=== PATIENT | male | born 1980 | race Caucasian/White ===

== ENCOUNTER 2017-07-11 14:01 | Inpatient (IN) | payer OTHER ==
[~2017-07-11] VITALS: Ht 182.9 cm; Wt 99.8 kg
[~2017-07-11 14:01] MED LIST: AMOXICILLIN500 MG ORAL; HYDROCODON-ACE1 EA15 ORAL; HYDROCODONE-ACE15 M1 PO; NKM; NORCO 10/3251 EA ORAL; ROBITUSSIN COU118 M4 PO; [UNRECOGNIZED DRUG - OTHER] PO
[2017-07-11] MEDS ORDERED: Ketorolac 60mg Inj IM ONE (14:45)
[2017-07-11 15:18] VITALS: BP 151/95
[2017-07-11] MEDS ORDERED: HYDROmorphone 2mg tab ORAL ONE ×2 (15:30→19:30)
[2017-07-11 16:04] LABS: BASOPHILS % (AUTO) 1.4 % (0.0-2.0); EOSINOPHILS % (AUTO) 1.9 % (0.0-3.0); LYMPHOCYTES % (AUTO) 28.3 % (20.0-45.0); MEAN CORPUSCULAR HEMOGLOBIN 27.8 PG (27.0-31.0); MEAN CORPUSCULAR HGB CONC 31.1 G/DL (32.0-36.0); MEAN CORPUSCULAR VOLUME 89 FL (80-99); MONOCYTES % (AUTO) 9.9 % (1.0-10.0); NEUTROPHILS % (AUTO) 58.6 % (45.0-75.0); PLATELET COUNT 334 K/UL (150-450); RED CELL DISTRIBUTION WIDTH 13.1 % (11.6-14.8); WHITE BLOOD COUNT 11.5 K/UL (4.8-10.8)
[2017-07-11] MEDS ORDERED: LORazepam Inj 2mg/ml 1ml IV ONE (16:15)
[2017-07-11 16:23] LABS: ALANINE AMINOTRANSFERASE 76 U/L (12-78); ALBUMIN/GLOBULIN RATIO 0.9 (1.0-2.7); ANION GAP 16 mmol/L (5-15); ASPARTATE AMINO TRANSFERASE 49 U/L (15-37); CALCIUM 9.4 MG/DL (8.5-10.1); CARBON DIOXIDE 22 MMOL/L (21-32); CHLORIDE 103 MMOL/L (98-107); GLOMERULAR FILTRATION RATE > 60 mL/min (>60); POTASSIUM 3.9 MMOL/L (3.5-5.1); SODIUM 141 MMOL/L (136-145); TOTAL PROTEIN 8.3 G/DL (6.4-8.2)
--- NOTE | 2017-07-11 16:31 | Emergency Room Report ---
History of Present Illness General Chief Complaint: Pain Source: Patient, Medical Record Present Illness HPI 37 YO Male Patient presents to the emergency department complaining of 10/10 in severity acute onset back pain since this am. Movement and walking exacerbates his pain. denies trauma or fall, fevers, chills, history of cancer, or recent spinal procedures. Hx. of spinal surgery for cauda equina of the right side in 2013, pt. states cause was unknown and not due to trauma. Denies numbness tingling or loss of sensation or gross motor movements of the lower extremity, denies incontinence of bowel or bladder. Denies CP, Palpitations, LOC, AMS, dizziness, Changes in Vision, Sensation, paresthesias, or a sudden severe headache. Allergies: Coded Allergies: No Known Allergies (Unverified , 03/20/13) Patient History Past Medical History: see triage record, other - surgery for cauda equina in 2012 Past Surgical History: none Pertinent Family History: none Reviewed Nursing Documentation: PMH: Agreed, PSxH: Agreed Nursing Documentation-PMH Past Medical History: No History, Except For Hx Cardiac Problems: No Hx Asthma: Yes Hx Cancer: No Hx Gastrointestinal Problems: Yes Hx Neurological Problems: Yes - spinal surgery 2012 Hx Cerebrovascular Accident: No Hx Dementia: No Hx Alzheimer's Disease: No Hx Parkinson's Disease: No Hx Meningitis: No Hx Encephalitis: No Hx Seizures: No Hx Epilepsy: No Hx Multiple Sclerosis: No Hx Cerebral Palsy: No Hx Amyotrophic Lat Sclerosis: No Hx Guillian-Friendship Syndrome: No Hx Paralysis: No Hx Peripheral Neuropathy: No Hx Spinal Cord Injury: No Hx Head Trauma: Yes - fall, Hx Traumatic Brain Injury: No Hx Memory Loss: No Hx Concentration Difficulty: No Hx Speech Problem: No Hx Tremors: No Hx Vertigo: No Hx Syncope: No Hx Headaches: No Hx Aphasia: No Hx Dysphasia: No Hx Weakness: No Hx Fatigue: No Review of Systems All Other Systems: negative except mentioned in HPI Physical Exam Vital Signs Date Time Temp Pulse Resp B/P (MAP) Pulse Ox O2 Delivery O2 Flow Rate FiO2 07/11/17 14:08 97.7 99 18 151/95 97 Room Air Sp02 EP Interpretation: reviewed, normal General Appearance: no apparent distress, alert, GCS 15, non-toxic Head: normocephalic, atraumatic Eyes: bilateral eye normal inspection, bilateral eye PERRL ENT: hearing grossly normal, normal voice Neck: full range of motion, no bony tend Respiratory: lungs clear, normal breath sounds, speaking full sentences Cardiovascular #1: regular rate, rhythm, no edema, normal capillary refill Cardiovascular #2: 2+ dorsalis pedis (R), 2+ dorsalis pedis (L) Gastrointestinal: non tender, soft, no guarding, no rebound Rectal: deferred Genitourinary: normal inspection, no CVA tenderness Musculoskeletal: back normal, other - pt. has compensating gait, tender - Moderate Tenderness to palpation to left paraspinal muscles of the left lower back, moderate TTP to the upper left glut, and posterior left thigh. no appreciable midline -spinous process tenderness, surgical scar at the lumbar level, no evidence of infection. No extremity weakness, no perianal anesthesi Neurologic: alert, oriented x3, responsive, motor strength/tone normal, sensory intact, speech normal, grossly normal Reflexes: 1+ knee (R), 1+ knee (L), 1+ ankle (R), 1+ ankle (L) Skin: normal color, no rash, warm/dry, well hydrated Medical Decision Making PA Attestation Dr. Styles is my supervising Physician whom patient management has been discussed with. Diagnostic Impression: Primary Impression: Cauda equina syndrome Additional Impression: Back pain Qualified Codes: M54.42 - Lumbago with sciatica, left side ER Course 37 YO Male Patient presents to the emergency department complaining of 10/10 in severity acute onset back pain since this am. Movement and walking exacerbates his pain. denies trauma or fall, fevers, chills, history of cancer, or recent spinal procedures. Hx. of spinal surgery for cauda equina of the right side in 2013, pt. states cause was unknown and not due to trauma. Denies numbness tingling or loss of sensation or gross motor movements of the lower extremity, denies incontinence of bowel or bladder. Denies CP, Palpitations, LOC, AMS, dizziness, Changes in Vision, Sensation, paresthesias, or a sudden severe headache. Ddx considered: epidural abscess, fracture, sprain/strain, meningitis, spinal chord injury, cauda equina just to name a few Vital signs reviewed and are WNL during ED visit. Pt. is afebrile with no signs of infection No saddle anesthesia noted, Pt. denies incontinence , states he has had symptoms of mild urinary retention since spinal surgery in 2012 Neurovascular is intact ROM is limited due to pain * Moderate Tenderness to palpation to left paraspinal muscles of the left lower back, moderate TTP to the upper left glut, and posterior left thigh. no appreciable midline -spinous process tenderness, surgical scar at the lumbar level, no evidence of infection. No extremity weakness, no perianal anesthesia. ORDERS: -MRI T-Spine NO CONTRAST: -MRI L-Spine NO CONTRAST: inconclusive, unable to effectively determine Cauda Equina, stenosis noted - Per official radiology report- Please see official report for full/ specific details. -CBC: wbc's 11.5 most likely stress reaction -CMP: unremarkable other than mildly elevated ALT -MRI L-Spine with Nestor. Contrast ( Per orthopedic surgeon request) : PENDING. - X-ray L-Spine 5 views ( Per orthopedic surgeon request): PENDING INTERVENTIONS: - 60mg IM Toradol -350mg Soma PO -1mg Dilaudid IV ( x 2) -2mg Ativan IV - Spinal Surgeon Consult facilitated by Dr. Styles via telephone video conference at [address] Miramontes. - 10mg Decadron IV I feel this is a highly complex case requiring extensive working including EKG/ Rhythm strip, Xray/CT/US, Blood/urine lab work, repeat exams while in ED, and administration of strong opiates/narcotics for pain control, admission to hospital or close patient follow up. Pt is stable, Dr Miramontes does not feel pt requires emergent surgery, additional imaging studies are ordered, pt. will receive IV steroids. DISPOSITION: at this time pt. will be admitted to Dr. Carias for Cauda Equina Syndrome. agreed to admit the pt. and to continue pt. care management. Labs Test 07/11/17 15:40 White Blood Count 11.5 K/UL (4.8-10.8) Red Blood Count 5.60 M/UL (4.70-6.10) Hemoglobin 15.6 G/DL (14.2-18.0) Hematocrit 50.0 % (42.0-52.0) Mean Corpuscular Volume 89 FL (80-99) Mean Corpuscular Hemoglobin 27.8 PG (27.0-31.0) Mean Corpuscular Hemoglobin Concent 31.1 G/DL (32.0-36.0) Red Cell Distribution Width 13.1 % (11.6-14.8) Platelet Count 334 K/UL (150-450) Mean Platelet Volume 6.0 FL (6.5-10.1) Neutrophils (%) (Auto) 58.6 % (45.0-75.0) Lymphocytes (%) (Auto) 28.3 % (20.0-45.0) Monocytes (%) (Auto) 9.9 % (1.0-10.0) Eosinophils (%) (Auto) 1.9 % (0.0-3.0) Basophils (%) (Auto) 1.4 % (0.0-2.0) Sodium Level 141 MMOL/L (136-145) Potassium Level 3.9 MMOL/L (3.5-5.1) Chloride Level 103 MMOL/L (98-107) Carbon Dioxide Level 22 MMOL/L (21-32) Anion Gap 16 mmol/L (5-15) Blood Urea Nitrogen 12 mg/dL (7-18) Creatinine 1.0 MG/DL (0.55-1.30) Estimat Glomerular Filtration Rate > 60 mL/min (>60) Glucose Level 103 MG/DL (74-106) Calcium Level 9.4 MG/DL (8.5-10.1) Total Bilirubin 0.6 MG/DL (0.2-1.0) Aspartate Amino Transf (AST/SGOT) 49 U/L (15-37) Alanine Aminotransferase (ALT/SGPT) 76 U/L (12-78) Alkaline Phosphatase 98 U/L (46-116) Total Protein 8.3 G/DL (6.4-8.2) Albumin 4.0 G/DL (3.4-5.0) Globulin 4.3 g/dL Albumin/Globulin Ratio 0.9 (1.0-2.7) Last Vital Signs Date Time Temp Pulse Resp B/P (MAP) Pulse Ox O2 Delivery O2 Flow Rate FiO2 07/11/17 15:42 97.7 07/11/17 15:18 78 18 151/95 97 Room Air Disposition: ADMITTED INPATIENT Condition: Serious Sara Hayes Jul 11, 2017 16:31
[2017-07-11 18:58] VITALS: BP 146/91
[2017-07-11] MEDS ORDERED: Dexamethasone 4mg/ml vial IVP ONE (19:45)
[2017-07-11 21:00] VITALS: BP 144/90
[2017-07-11] MEDS ORDERED: Miralax 17gm pkt ORAL PRN (21:00)
[2017-07-11] MEDS ORDERED: Zolpidem 5mg tab ORAL PRN (21:00)
[2017-07-11] MEDS ORDERED: Mylanta II UD 30ml ORAL PRN (21:00)
[2017-07-11] MEDS ORDERED: Morphine Sulfate 2mg/ml Inj IVP PRN (21:00)
[2017-07-11] MEDS ORDERED: LORazepam Inj 2mg/ml 1ml IV PRN (21:00)
[2017-07-11 21:59] VITALS: BP 122/77
[2017-07-11] MEDS: Heparin 5000 units/ml inj SUBQ SCH (22:00)
[2017-07-12 00:26] VITALS: BP 130/70
[2017-07-12] MEDS: Morphine Sulfate 4mg/ml Inj IVP PRN ×2 (00:59→07:57)
[2017-07-12 04:00] VITALS: BP 116/63
[2017-07-12 07:41] LABS: BASOPHILS % (AUTO) 0.6 % (0.0-2.0); LYMPHOCYTES % (AUTO) 12.4 % (20.0-45.0); MEAN CORPUSCULAR HEMOGLOBIN 30.2 PG (27.0-31.0); MEAN CORPUSCULAR HGB CONC 33.8 G/DL (32.0-36.0); MEAN CORPUSCULAR VOLUME 89 FL (80-99); MEAN PLATELET VOLUME 6.9 FL (6.5-10.1); MONOCYTES % (AUTO) 4.6 % (1.0-10.0); NEUTROPHILS % (AUTO) 82.4 % (45.0-75.0); PLATELET COUNT 315 K/UL (150-450); RED BLOOD COUNT 5.04 M/UL (4.70-6.10); RED CELL DISTRIBUTION WIDTH 13.1 % (11.6-14.8); WHITE BLOOD COUNT 13.7 K/UL (4.8-10.8)
[2017-07-12] MEDS ORDERED: Morphine Sulfate 10mg/ml Inj ONE (07:49)
[2017-07-12 08:00] VITALS: BP 124/77
[2017-07-12 08:14] LABS: ALANINE AMINOTRANSFERASE 64 U/L (12-78); ALBUMIN/GLOBULIN RATIO 0.9 (1.0-2.7); ANION GAP 12 mmol/L (5-15); ASPARTATE AMINO TRANSFERASE 33 U/L (15-37); CALCIUM 9.5 MG/DL (8.5-10.1); CARBON DIOXIDE 23 MMOL/L (21-32); CHLORIDE 104 MMOL/L (98-107); CREATININE 1.2 MG/DL (0.55-1.30); GLOMERULAR FILTRATION RATE > 60 mL/min (>60); POTASSIUM 4.4 MMOL/L (3.5-5.1); SODIUM 139 MMOL/L (136-145); THYROID STIMULATING HORMONE 0.621 uiU/mL (0.360-3.740); TOTAL PROTEIN 7.8 G/DL (6.4-8.2)
--- NOTE | 2017-07-12 08:36 | Consultation ---
History of Present Illness General Date patient seen: Jul 12, 2017 Chief Complaint: Pain Present Illness Allergies: Coded Allergies: No Known Allergies (Unverified , 03/20/13) Medication History Scheduled Amoxicillin* (Amoxil*), 500 MG ORAL Q12HR Guaifenesin/Dextromethorphan (Robitussin Cough-Chest Dm Liq), 10 ML PO Q4HR No Known Medications* (NKM - No Known Medications*), 0 ., (Reported) Scheduled PRN Hydrocodone Bit/Acetaminophen (Hydrocodone-Acetaminophen Soln), 15 ML PO Q4HR PRN, (Reported) Hydrocodone/Acetaminophen (Hydrocodon-Acetaminophn 10-325), 1 TAB ORAL Q12HR PRN for For Pain Patient History Healthcare decision maker Resuscitation status Full Code Advanced Directive on File Physical Exam Last 24 Hour Vital Signs Date Time Temp Pulse Resp B/P (MAP) Pulse Ox O2 Delivery O2 Flow Rate FiO2 07/12/17 04:00 97.7 99 16 116/63 100 Room Air 07/12/17 01:29 98.1 07/12/17 00:26 98.1 70 18 130/70 99 Room Air 07/11/17 21:59 97.5 88 18 122/77 94 Room Air 07/11/17 21:20 97.7 75 18 146/91 97 Room Air 07/11/17 21:00 97.7 77 18 144/90 98 Room Air 07/11/17 20:44 97.7 07/11/17 18:58 97.7 75 18 146/91 97 Room Air 07/11/17 15:42 97.7 07/11/17 15:42 97.7 07/11/17 15:42 97.7 07/11/17 15:18 97.7 78 18 151/95 97 Room Air 07/11/17 15:12 97.7 07/11/17 14:08 97.7 99 18 151/95 97 Room Air Laboratory Tests Test 07/11/17 15:40 07/12/17 05:45 White Blood Count 11.5 K/UL (4.8-10.8) H 13.7 K/UL (4.8-10.8) H Red Blood Count 5.60 M/UL (4.70-6.10) 5.04 M/UL (4.70-6.10) Hemoglobin 15.6 G/DL (14.2-18.0) 15.2 G/DL (14.2-18.0) Hematocrit 50.0 % (42.0-52.0) 45.0 % (42.0-52.0) Mean Corpuscular Volume 89 FL (80-99) 89 FL (80-99) Mean Corpuscular Hemoglobin 27.8 PG (27.0-31.0) 30.2 PG (27.0-31.0) Mean Corpuscular Hemoglobin Concent 31.1 G/DL (32.0-36.0) L 33.8 G/DL (32.0-36.0) Red Cell Distribution Width 13.1 % (11.6-14.8) 13.1 % (11.6-14.8) Platelet Count 334 K/UL (150-450) 315 K/UL (150-450) Mean Platelet Volume 6.0 FL (6.5-10.1) L 6.9 FL (6.5-10.1) Neutrophils (%) (Auto) 58.6 % (45.0-75.0) 82.4 % (45.0-75.0) H Lymphocytes (%) (Auto) 28.3 % (20.0-45.0) 12.4 % (20.0-45.0) L Monocytes (%) (Auto) 9.9 % (1.0-10.0) 4.6 % (1.0-10.0) Eosinophils (%) (Auto) 1.9 % (0.0-3.0) 0.0 % (0.0-3.0) Basophils (%) (Auto) 1.4 % (0.0-2.0) 0.6 % (0.0-2.0) Sodium Level 141 MMOL/L (136-145) 139 MMOL/L (136-145) Potassium Level 3.9 MMOL/L (3.5-5.1) 4.4 MMOL/L (3.5-5.1) Chloride Level 103 MMOL/L (98-107) 104 MMOL/L (98-107) Carbon Dioxide Level 22 MMOL/L (21-32) 23 MMOL/L (21-32) Anion Gap 16 mmol/L (5-15) H 12 mmol/L (5-15) Blood Urea Nitrogen 12 mg/dL (7-18) 21 mg/dL (7-18) H Creatinine 1.0 MG/DL (0.55-1.30) 1.2 MG/DL (0.55-1.30) Estimat Glomerular Filtration Rate > 60 mL/min (>60) > 60 mL/min (>60) Glucose Level 103 MG/DL (74-106) 160 MG/DL (74-106) H Calcium Level 9.4 MG/DL (8.5-10.1) 9.5 MG/DL (8.5-10.1) Total Bilirubin 0.6 MG/DL (0.2-1.0) 0.6 MG/DL (0.2-1.0) Aspartate Amino Transf (AST/SGOT) 49 U/L (15-37) H 33 U/L (15-37) Alanine Aminotransferase (ALT/SGPT) 76 U/L (12-78) 64 U/L (12-78) Alkaline Phosphatase 98 U/L (46-116) 89 U/L (46-116) Total Protein 8.3 G/DL (6.4-8.2) H 7.8 G/DL (6.4-8.2) Albumin 4.0 G/DL (3.4-5.0) 3.7 G/DL (3.4-5.0) Globulin 4.3 g/dL 4.1 g/dL Albumin/Globulin Ratio 0.9 (1.0-2.7) L 0.9 (1.0-2.7) L Thyroid Stimulating Hormone (TSH) 0.621 uiU/mL (0.360-3.740) Height (Feet): 6 Height (Inches): 0.00 Weight (Pounds): 220 Medications Current Medications Medications (Trade) Dose Ordered Sig/Koffi Route PRN Reason Start Time Stop Time Status Last Admin Dose Admin Acetaminophen (Tylenol) 650 mg Q4H PRN ORAL fever 07/11/17 21:00 08/10/17 20:59 Al Hydroxide/Mg Hydroxide (Mylanta II) 30 ml Q6H PRN ORAL dyspepsia 07/11/17 21:00 08/10/17 20:59 Dextrose (Dextrose 50%) STAT PRN IV Hypoglycemia 10/26/17 21:00 08/10/17 20:59 Heparin Sodium (Porcine) (Heparin 5000 units/ml) 5,000 units EVERY 12 HOURS SUBQ 07/11/17 22:00 08/10/17 21:59 Lorazepam (Ativan 2mg/ml 1ml) 0.5 mg Q4H PRN IV For Anxiety 07/11/17 21:00 07/18/17 20:59 Morphine Sulfate (Morphine Sulfate) 2 mg Q4H PRN IVP For Pain 4-6 07/11/17 21:00 07/18/17 20:59 Morphine Sulfate (Morphine Sulfate) 4 mg Q4H PRN IVP For Pain 7-10 07/11/17 21:00 07/18/17 20:59 07/12/17 07:57 Ondansetron HCl (Zofran) 4 mg Q6H PRN IVP Nausea & Vomiting 07/11/17 21:00 08/10/17 20:59 Polyethylene Glycol (Miralax) 17 gm HSPRN PRN ORAL Constipation 07/11/17 21:00 08/10/17 20:59 Zolpidem Tartrate (Ambien) 5 mg HSPRN PRN ORAL Insomnia 07/11/17 21:00 07/18/17 20:59 07/12/17 03:29 Assessment/Plan Assessment/Plan (1) Lumbar Herniated disc (2) Lumbar Radiculopathy (3) Lumbar Spinal stenosis (4) H/o Lumbar Laminectomy (5) R/o Cuda equina syndrome Seen dictated ELIZABETH COPELAND Jul 12, 2017 08:36
--- NOTE | 2017-07-12 08:52 | Consultation ---
Consult Note Consult Note chart reviewed. mri done last night is poor quality due to motion redo MRI today and get post gado images Assessment/Plan redo MRI Xrays l spine I will reeval this afternoon LELIA CALVILLO Jul 12, 2017 08:52
--- NOTE | 2017-07-12 09:37 | Diagnostic Imaging Report ---
Indication: PAIN Technique: 4 views of the lumbar spine, also flexion and extension views Comparison: None Findings: Bony alignment is normal, does not change significantly with flexion and and extension. The vertebral body heights are preserved. There is minimal degenerative narrowing of the L5-S1 disc. The remainder of the disc spaces are preserved. There is minimal bilateral L5-S1 facet degeneration. Remainder of the facets are preserved. No acute fractures. No dislocations. Pedicles are intact. Sacral arches are preserved. Impression: No acute bony trauma or evidence of ligamentous instability Minimal degenerative changes, as described
[2017-07-12] MEDS ORDERED: Norco 10mg/325mg tab ORAL PRN (10:00)
--- NOTE | 2017-07-12 10:01 | Diagnostic Imaging Report ---
Indication: 37-year-old male patient with back pain x1 week, worse over one day, history of lumbar surgery 2012 Technique: Sagittal T1 and T2 fast spin echo PROPELLER, sagittal STIR PROPELLER, axial T1 and T2 fast spin-echo PROPELLER images of the lumbar spine Comparison: 03/20/2013 Findings: There is severe image degradation due to motion artifact. Per technologist, the patient was unable hold still despite pain meds and sedation. Bony alignment is normal. Vertebral body heights are preserved. Disc spaces are preserved. Conus medullaris terminates at the L1 level. Again demonstrated is severe posterior central disc protrusion at L5-S1. This is not well demonstrated, as there is extensive motion artifact affecting this area. The protruding disc appears to extend approximately 6 mm posterior to the posterior margin of the vertebral body. There is questionably a large extruded disc fragment within the canal centrally which measures approximately 7 mm in diameter and results in likely severe compromise of the spinal canal. This is somewhat uncertain, however, as it is only seen on one image of each of the sequences. This extruded fragment may also have been evident previously. The bulging disc and left facet hypertrophy results in narrowing of the spinal canal in the left At the remaining levels, no definite significant disc bulge or protrusion,, spinal stenosis, or definite neural foraminal stenosis. The included extraspinal soft tissues are unremarkable. Impression: Severely limited exam due to considerable motion artifact Positive for significant posterior central disc protrusion and possible extruded fragment at L5-S1, as described. Resultant likely significant compromise of the spinal canal. Moderate narrowing of the left L5-S1 neural foramen This agrees with the preliminary interpretation provided overnight by [facility]iology service.
[2017-07-12] MEDS: Heparin 5000 units/ml inj SUBQ SCH ×2 (10:11→20:23)
--- NOTE | 2017-07-12 10:21 | Diagnostic Imaging Report ---
Indication: Back pain x1 week, increased severe pain x1 day Technique: Sagittal T1 FLAIR PROPELLER, sagittal T2 PROPELLER, sagittal T1 STIR PROPELLER, axial T1 FLAIR PROPELLER, axial T2 PROPELLER images were obtained through the thoracic spine Comparison: None Findings: There is slight image degradation by motion artifact. Bony alignment is normal. Vertebral body heights are preserved. The disc spaces are preserved. Intrinsic cord signal is normal. No significant disc bulge or protrusion, spinal stenosis, or neural foraminal stenosis demonstrated. The included extraspinal soft tissues are unremarkable. Impression: Negative This agrees with the preliminary interpretation provided overnight by [facility] service.
[2017-07-12 12:00] VITALS: BP 145/97
--- NOTE | 2017-07-12 12:12 | Diagnostic Imaging Report ---
Indication: PAIN Technique: Sagittal T1 and T2 fast spin echo PROPELLER, sagittal STIR PROPELLER, axial T1 and T2 fast spin-echo PROPELLER, pre-and postcontrast T1 fat saturated images of the lumbar spine Comparison: 07/11/2017 Findings: Current image quality is much improved, as patient was unable hold still. Bony alignment is normal. Vertebral body heights are preserved. Disc spaces are preserved. Conus medullaris terminates at the level of the T12-L1 disc. Vertebral body marrow signal is normal. At L5-S1, images confirm the presence of a broad-based posterior disc protrusion and large posterior disc extrusion. Extruded fragment is central within the spinal canal. It measures 18 mm in length, 8 mm transverse and 8 mm AP, and fills most of the spinal canal and likely compresses all of the sacral nerve roots. The extruded fragment does not enhance significantly. When compared to the prior study, the amount of protrusion has decreased but the extruded fragment is significantly larger. The broad-based disc protrusion also slightly narrows the left neural foramen. This is also exacerbated by left-sided facet hypertrophy. There is some enhancement in the anterior epidural space at and above the disc. This may just reflect widening of the epidural space by the protruding disc The bilateral S1 nerve roots are enlarged. This was also evident on the prior 2013 MRI. At the remaining disc levels, no significant disc bulge or protrusion, spinal stenosis, or neural foraminal stenosis. The bladder is distended. The remainder of the extraspinal soft tissues are unremarkable Impression: Positive for broad-based L5-S1 disc protrusion and large central disc extrusion, as described above, nearly completely obliterating the spinal canal at and below the L5-S1 level. There is a greater degree of extrusion and a lesser degree of protrusion when compared to a prior 2013 exam. Mild left neural foraminal stenosis, in part due to the bulging disc and in part to facet hypertrophy Mild nonspecific enhancement of the anterior epidural space at and above the L5-S1 disc Enlarged bilateral S1 nerve roots. Likely on the basis of chronic inflammation secondary to the above. This is unchanged from 2013 Distended bladder
--- NOTE | 2017-07-12 15:02 | History and Physical ---
History of Present Illness General Date patient seen: Jul 12, 2017 Time patient seen: 12:00 Reason for Hospitalization: Pain Present Illness HPI 37 y/o male with hx of R sided cauda equina syndrome and spinal surgery, presented to ED complaining of 10/10 acute onset of back pain Pain is exacerbated by movement, walking no trauma, falls, injury No fevers, chills No hx of malignancy No recent spinal manipulations patient with hx of spinal surgery for cauda equina on th right in 2012 , denied trauma or injury prior to incident patient denied urinary or bowel incontinence, loss of sensation or gross movement in BLE, denied saddle anesthesia no CP, SOB, palpitations, dizziness no LOC, blackout, changes in vision, MRI T spine was negative MRI L spine was inconclusive spine surgeon was contacted, patient with mild leukocytosis on presentation patient was admitted for further management Allergies: Coded Allergies: No Known Allergies (Unverified , 03/20/13) Medication History Scheduled Amoxicillin* (Amoxil*), 500 MG ORAL Q12HR Guaifenesin/Dextromethorphan (Robitussin Cough-Chest Dm Liq), 10 ML PO Q4HR No Known Medications* (NKM - No Known Medications*), 0 ., (Reported) Scheduled PRN Acetaminophen With Codeine (T#3) (Tylenol #3 Tab*), 1 TAB ORAL Q4H PRN Hydrocodone Bit/Acetaminophen (Hydrocodone-Acetaminophen Soln), 15 ML PO Q4HR PRN, (Reported) Hydrocodone/Acetaminophen (Hydrocodon-Acetaminophn 10-325), 1 TAB ORAL Q12HR PRN for For Pain Patient History Healthcare decision maker Resuscitation status Full Code Advanced Directive on File Review of Systems Eye: Reports: no symptoms ENT: Reports: no symptoms Cardiovascular: Reports: no symptoms Gastrointestinal: Reports: no symptoms Genitourinary: Reports: no symptoms Musculoskeletal: Reports: no symptoms Skin: Reports: no symptoms Psychiatric: Reports: no symptoms Neurological: Reports: no symptoms Endocrine: Reports: no symptoms Hematologic/Lymphatic: Reports: no symptoms Physical Exam General Appearance: alert Lines, tubes and drains: peripheral HEENT: normocephalic, atraumatic, anicteric, mucous membranes moist, PERRL Neck: non-tender, supple, normal inspection, abnormal alignment Respiratory/Chest: chest wall non-tender, lungs clear, normal breath sounds, no respiratory distress, no accessory muscle use Cardiovascular/Chest: normal peripheral pulses, regular rhythm, regularly irregular Abdomen: normal bowel sounds, non tender, soft Extremities: normal range of motion, non-tender, normal inspection, no calf tenderness, normal capillary refill, non-pitting Neurologic: operator automated process II-XII grossly normal, no motor/sensory deficits, alert, oriented x 3, responsive, normal mood/affect, other - neurovascular intact , strength 5/5 BLE Musculoskeletal: normal muscle bulk Last 24 Hour Vital Signs Date Time Temp Pulse Resp B/P (MAP) Pulse Ox O2 Delivery O2 Flow Rate FiO2 07/12/17 12:00 97.5 84 18 145/97 96 Room Air 07/12/17 08:00 97.7 81 17 124/77 98 Room Air 07/12/17 04:00 97.7 99 16 116/63 100 Room Air 07/12/17 01:29 98.1 07/12/17 00:26 98.1 70 18 130/70 99 Room Air 07/11/17 21:59 97.5 88 18 122/77 94 Room Air 07/11/17 21:20 97.7 75 18 146/91 97 Room Air 07/11/17 21:00 97.7 77 18 144/90 98 Room Air 07/11/17 20:44 97.7 07/11/17 18:58 97.7 75 18 146/91 97 Room Air 07/11/17 15:42 97.7 07/11/17 15:42 97.7 07/11/17 15:42 97.7 07/11/17 15:18 97.7 78 18 151/95 97 Room Air 07/11/17 15:12 97.7 Laboratory Tests Test 07/11/17 15:40 07/12/17 05:45 White Blood Count 11.5 K/UL (4.8-10.8) H 13.7 K/UL (4.8-10.8) H Red Blood Count 5.60 M/UL (4.70-6.10) 5.04 M/UL (4.70-6.10) Hemoglobin 15.6 G/DL (14.2-18.0) 15.2 G/DL (14.2-18.0) Hematocrit 50.0 % (42.0-52.0) 45.0 % (42.0-52.0) Mean Corpuscular Volume 89 FL (80-99) 89 FL (80-99) Mean Corpuscular Hemoglobin 27.8 PG (27.0-31.0) 30.2 PG (27.0-31.0) Mean Corpuscular Hemoglobin Concent 31.1 G/DL (32.0-36.0) L 33.8 G/DL (32.0-36.0) Red Cell Distribution Width 13.1 % (11.6-14.8) 13.1 % (11.6-14.8) Platelet Count 334 K/UL (150-450) 315 K/UL (150-450) Mean Platelet Volume 6.0 FL (6.5-10.1) L 6.9 FL (6.5-10.1) Neutrophils (%) (Auto) 58.6 % (45.0-75.0) 82.4 % (45.0-75.0) H Lymphocytes (%) (Auto) 28.3 % (20.0-45.0) 12.4 % (20.0-45.0) L Monocytes (%) (Auto) 9.9 % (1.0-10.0) 4.6 % (1.0-10.0) Eosinophils (%) (Auto) 1.9 % (0.0-3.0) 0.0 % (0.0-3.0) Basophils (%) (Auto) 1.4 % (0.0-2.0) 0.6 % (0.0-2.0) Sodium Level 141 MMOL/L (136-145) 139 MMOL/L (136-145) Potassium Level 3.9 MMOL/L (3.5-5.1) 4.4 MMOL/L (3.5-5.1) Chloride Level 103 MMOL/L (98-107) 104 MMOL/L (98-107) Carbon Dioxide Level 22 MMOL/L (21-32) 23 MMOL/L (21-32) Anion Gap 16 mmol/L (5-15) H 12 mmol/L (5-15) Blood Urea Nitrogen 12 mg/dL (7-18) 21 mg/dL (7-18) H Creatinine 1.0 MG/DL (0.55-1.30) 1.2 MG/DL (0.55-1.30) Estimat Glomerular Filtration Rate > 60 mL/min (>60) > 60 mL/min (>60) Glucose Level 103 MG/DL (74-106) 160 MG/DL (74-106) H Calcium Level 9.4 MG/DL (8.5-10.1) 9.5 MG/DL (8.5-10.1) Total Bilirubin 0.6 MG/DL (0.2-1.0) 0.6 MG/DL (0.2-1.0) Aspartate Amino Transf (AST/SGOT) 49 U/L (15-37) H 33 U/L (15-37) Alanine Aminotransferase (ALT/SGPT) 76 U/L (12-78) 64 U/L (12-78) Alkaline Phosphatase 98 U/L (46-116) 89 U/L (46-116) Total Protein 8.3 G/DL (6.4-8.2) H 7.8 G/DL (6.4-8.2) Albumin 4.0 G/DL (3.4-5.0) 3.7 G/DL (3.4-5.0) Globulin 4.3 g/dL 4.1 g/dL Albumin/Globulin Ratio 0.9 (1.0-2.7) L 0.9 (1.0-2.7) L Thyroid Stimulating Hormone (TSH) 0.621 uiU/mL (0.360-3.740) Height (Feet): 6 Height (Inches): 0.00 Weight (Pounds): 220 Medications Current Medications Medications (Trade) Dose Ordered Sig/Koffi Route PRN Reason Start Time Stop Time Status Last Admin Dose Admin Acetaminophen (Tylenol) 650 mg Q4H PRN ORAL fever 07/11/17 21:00 08/10/17 20:59 Acetaminophen/ Hydrocodone Bitart ([place] 10/325) 1 ea Q6H PRN ORAL Moderate Pain (Pain Scale 4-6) 07/12/17 10:00 07/19/17 09:59 Al Hydroxide/Mg Hydroxide (Mylanta II) 30 ml Q6H PRN ORAL dyspepsia 07/11/17 21:00 08/10/17 20:59 Baclofen (Lioresal) 10 mg THREE TIMES A DAY PRN ORAL muscle spasm 07/12/17 10:00 08/11/17 09:59 Dextrose (Dextrose 50%) STAT PRN IV Hypoglycemia 07/11/17 21:00 08/10/17 20:59 Gabapentin (Neurontin) 300 mg THREE TIMES A DAY ORAL 07/12/17 10:00 08/11/17 09:59 07/12/17 13:16 Heparin Sodium (Porcine) (Heparin 5000 units/ml) 5,000 units EVERY 12 HOURS SUBQ 07/11/17 22:00 08/10/17 21:59 07/12/17 10:11 Hydromorphone HCl (Dilaudid) 1 mg Q4H PRN IVP Severe Pain (Pain Scale 7-10) 07/12/17 10:00 07/19/17 09:59 07/12/17 14:04 Lorazepam (Ativan 2mg/ml 1ml) 0.5 mg Q4H PRN IV For Anxiety 07/11/17 21:00 07/18/17 20:59 Ondansetron HCl (Zofran) 4 mg Q6H PRN IVP Nausea & Vomiting 07/11/17 21:00 08/10/17 20:59 Polyethylene Glycol (Miralax) 17 gm HSPRN PRN ORAL Constipation 07/11/17 21:00 08/10/17 20:59 Zolpidem Tartrate (Ambien) 5 mg HSPRN PRN ORAL Insomnia 07/11/17 21:00 07/18/17 20:59 07/12/17 03:29 Assessment/Plan Assessment/Plan ASSESSMENT back pain r/o cauda equina hx of cauda equina syndrome with spinal surgery recurrent central disc herniation L5S1 hx of bilateral laminoforaminotomy PLAN OF CARE MS floor pain management pain specialist follows IV steroids spine surgery follwso repeat MRI L sone and X ray MRI L spine - Positive for broad-based L5-S1 disc protrusion and large central disc extrusion, nearly completely obliterating the spinal canal at and below the L5-S1 level. There is a greater degree of extrusion and a lesser degree of protrusion when compared to a prior 2012 exam. lumbar X ray -No acute bony trauma or evidence of ligamentous instability surgeon will reevaluate later today DVT prophayxlsi PT/OT case discussed and evaluated by supervising physician Vasiliy ([facility]),Joellen CLANCY Jul 12, 2017 15:01
[2017-07-12 16:00] VITALS: BP 136/74
[2017-07-12 20:00] VITALS: BP 119/78
--- NOTE | 2017-07-12 22:30 | Consultation ---
DATE OF CONSULTATION: 07/12/2017 PAIN MANAGEMENT CONSULTATION CONSULTING PHYSICIAN: Coty Schaeffer M.D. REFERRING PHYSICIAN: Jonna Ryan M.D. PHYSICIAN DIRECT OF REAL ESTATE: Hedy Carrillo CHIEF COMPLAINT: Low back pain. HISTORY OF PRESENT ILLNESS: This is a 37-year-old male, who is being seen on the Med/Surg floor of [facility] for initial comprehensive pain management consultation. The patient reports that he has been having low back pain for many years starting in 2009, in 2012 had lumbar laminectomy here in [facility] under the care of Dr. Miramontes due to a 12.4 mm disk herniation. However, over the past week, the pain has become chronic and constant, rating the pain as 10/10, describing it as a sharp, burning, stabbing pain, shooting down into his left lower extremity, increasing with movement, and nothing has been helping to relieve his pain. The patient had been brought to the emergency room. He is complaining of some urinary and bowel retention and at times urinary incontinence, which he states has been a constant issue since the original surgery. MRI of lumbar spine was done. Preliminary report shows abnormal signal posterior to the L5-S1 intervertebral disk, which may be related to a disk herniation and/or scarring, severe spinal canal stenosis is suspected with probable obliteration of the thecal sac as well as moderate to severe left neural foraminal narrowing is suspected at L5-S1. At this time, the patient was started on morphine 2 to 4 mg IV every 4 hours as needed for moderate to severe pain with minimal pain relief. Due to this, we were consulted so that the patient would have adequate pain control while here in the hospital. The patient will be seen neurosurgeon as per product builder, the neurosurgeon will be Dr. Miramontes who will decide if MRI of the lumbar spine with contrast will be ordered. PAST MEDICAL HISTORY: Low back pain. PAST SURGICAL HISTORY: Lumbar laminectomy. SOCIAL HISTORY: Denies smoking tobacco, drinking alcohol, or IV drug abuse. ALLERGIES: No known drug allergies. MEDICATIONS: Amoxicillin and Robitussin. REVIEW OF SYSTEMS: Denies rash, fever, chills, sweating, dizziness, drowsiness, blurred vision, sore throat, or change in his weight. No shortness of breath or chest pain. No nausea, vomiting, diarrhea, or blood in the stool or urine. He is complaining of low back pain radiating into the left lower extremity with urinary incontinence at times as well as urinary and bowel retention at times. PHYSICAL EXAMINATION: GENERAL: Alert, awake, and oriented x3. VITAL SIGNS: Blood pressure 116/63, heart rate is 99, oxygen saturation 98%, respiratory rate 16, and temperature is 97.7 degrees Fahrenheit. Height is 6 feet, weight is 220 pounds. HEENT: PERRLA. NECK: Range of motion is full in all directions. No tenderness to paracervical muscles. No adenopathy. LUNGS: Clear. HEART: Regular. ABDOMEN: Benign. BACK: Range of motion is decreased in flexion and extension with surgical scar noted in the midline of lumbar spine. EXTREMITIES: Upper extremity range of motion is full in all directions. Motor is intact. No cyanosis. No clubbing. No edema. Sensory is intact. Reflexes are unobtainable. No adenopathy. Lower extremity motion is decreased due to the patient's pain and condition. Motor, no local deficit noted at this time. Slight weakness noted in the left lower extremity. Sensory is intact. Reflexes are unobtainable. No adenopathy. ASSESSMENT AND PLAN: This is a 37-year-old male with lumbar herniated disk, lumbar radiculopathy, lumbar spinal stenosis, history of lumbar laminectomy, rule out cauda equina syndrome. The patient will be discontinued off the morphine and started on Dilaudid 1 mg IV every 4 hours as needed for severe pain and [place] 10/325 mg 1 tablet every 6 hours as needed for moderate pain, Neurontin 300 mg 3 times a day, and baclofen 10 mg tablet every 8 hours as needed for muscle spasm. Again, Dr. Miramontes, will be evaluating the patient for possible MRI of lumbar spine with contrast and to evaluate if surgery is warranted at this time. The patient was discussed with Dr. Schaeffer and Dr. Schaeffer concurred. We will follow the patient. Thank you very much for the courtesy of this consultation. Coty Schaeffer M.D. ASHLEY Carrillo DR: RENATE JOB#: [id number] CC:
[2017-07-13] VITALS: BP 119/60
--- NOTE | 2017-07-13 03:00 | Consultation ---
DATE OF CONSULTATION: 07/12/2017 CONSULTING PHYSICIAN: John Miramontes M.D. REASON FOR CONSULTATION: Disk herniation with lower back and right lower extremity radiation, history of prior back surgery, status post prior laminectomy and diskectomy at L5-S1. HISTORY OF PRESENT ILLNESS: The patient is a 37-year-old, well known to myself, who nearly four years ago, underwent a L5-S1 bilateral laminectomy and diskectomy at L5-S1. The surgery was performed on 03/21/2013. Postoperatively, the patient did well. He had some mild residual right lower extremity numbness and occasional sexual dysfunction/perineal sensory loss primarily on the right side, who indicates that he has been doing well until one week ago where he developed severe pain in the back with radiation from the buttock down to the posterior thigh on right side. The patient came in through the emergency room as these were similar to the same symptoms he presented with four years ago where he had the caudal equina syndrome. The patient adamantly denies any perineal sensory loss currently, bowel or bladder dysfunction, and maribel weakness, however, indicates that the pain is so severe, he cannot sit or stand or walk for very extended periods of time. An MRI was obtained last night, which was of poor quality. This morning, I asked that it be repeated. X-rays were also performed and the patient is currently being evaluated. PAST MEDICAL HISTORY: Unremarkable. PAST SURGICAL HISTORY: None other than above. MEDICATIONS: Please see medication reconciliation report. ALLERGIES: No known drug allergies. PHYSICAL EXAMINATION: GENERAL: The patient is pleasant; however, during the exam, he was evaluated lying flat in the hospital bed. NEUROLOGIC: He has positive straight leg raise at 60 degrees on the left and 80 degrees on the right. Motor strength testing is intact, bilateral quadriceps, tibialis anterior, EHL, and gastroc soleus. Reflexes are symmetrically diminished at S1. BACK: Clean, dry, and intact. Incision is well healed. DIAGNOSTIC DATA: MRI was reviewed demonstrating central disk herniation, L5-S1, recurrent, status post bilateral laminoforaminotomy. PLAN: At this point, I have had a lengthy and maribel discussion with the patient. The patient does have a recurrent disk extrusion at L5-S1. Currently, he does not have findings of cauda equina syndrome. Neurologically he is intact. He does have nerve root traction signs and positive straight leg raise on left side. He will continue the steroid protocol. In the event that his pain is not controlled, surgical intervention would then be in order. The patient does understand. John Skinny Miramontes DR: Catracho JOB#: [id number] CC:
[2017-07-13 04:00] VITALS: BP 114/72
[2017-07-13 08:00] VITALS: BP 139/102
[2017-07-13] MEDS: Heparin 5000 units/ml inj SUBQ SCH (08:26)
[2017-07-13 12:00] VITALS: BP 117/75
[2017-07-13] MEDS ORDERED: ACETAMINOPHEN-1 EAC1 ORAL (12:23)
--- NOTE | 2017-07-13 12:24 | Pulmonology Progress Note ---
Assessment/Plan Problems: (1) Cauda equina syndrome (2) Back pain Assessment/Plan outpatient f/u on saturday with Dr. Davila dc home with tylenol number 3 Subjective ROS Limited/Unobtainable: No Interval Events: pain controlled Allergies: Coded Allergies: No Known Allergies (Unverified , 03/20/13) Objective Last 24 Hour Vital Signs Date Time Temp Pulse Resp B/P (MAP) Pulse Ox O2 Delivery O2 Flow Rate FiO2 07/13/17 11:02 97.9 07/13/17 08:00 97.9 69 19 139/102 98 Room Air 07/13/17 04:00 97.7 67 20 114/72 97 Room Air 07/13/17 00:00 97.5 66 21 119/60 97 Room Air 07/12/17 20:00 97.3 74 20 119/78 97 Room Air 07/12/17 16:00 97.7 81 19 136/74 97 Room Air General Appearance: WD/WN HEENT: atraumatic, anicteric Respiratory/Chest: chest wall non-tender, lungs clear Abdomen: normal bowel sounds Extremities: no cyanosis Neurologic/Psychiatric: cvicu nurse II-XII grossly normal, abnormal gait Current Medications Medications (Trade) Dose Ordered Sig/Koffi Route PRN Reason Start Time Stop Time Status Last Admin Dose Admin Acetaminophen (Tylenol) 650 mg Q4H PRN ORAL fever 07/11/17 21:00 08/10/17 20:59 Acetaminophen/ Hydrocodone Bitart ([place] 10/325) 1 ea Q6H PRN ORAL Moderate Pain (Pain Scale 4-6) 07/12/17 10:00 07/19/17 09:59 Al Hydroxide/Mg Hydroxide (Mylanta II) 30 ml Q6H PRN ORAL dyspepsia 07/11/17 21:00 08/10/17 20:59 Baclofen (Lioresal) 10 mg THREE TIMES A DAY PRN ORAL muscle spasm 07/12/17 10:00 08/11/17 09:59 07/13/17 00:09 Dextrose (Dextrose 50%) STAT PRN IV Hypoglycemia 07/11/17 21:00 08/10/17 20:59 Gabapentin (Neurontin) 300 mg THREE TIMES A DAY ORAL 07/12/17 10:00 08/11/17 09:59 07/13/17 08:26 Heparin Sodium (Porcine) (Heparin 5000 units/ml) 5,000 units EVERY 12 HOURS SUBQ 07/11/17 22:00 08/10/17 21:59 07/13/17 08:26 Hydromorphone HCl (Dilaudid) 1 mg Q4H PRN IVP Severe Pain (Pain Scale 7-10) 07/12/17 10:00 07/19/17 09:59 07/13/17 10:32 Lorazepam (Ativan 2mg/ml 1ml) 0.5 mg Q4H PRN IV For Anxiety 07/11/17 21:00 07/18/17 20:59 Ondansetron HCl (Zofran) 4 mg Q6H PRN IVP Nausea & Vomiting 07/11/17 21:00 08/10/17 20:59 Polyethylene Glycol (Miralax) 17 gm HSPRN PRN ORAL Constipation 07/11/17 21:00 08/10/17 20:59 Zolpidem Tartrate (Ambien) 5 mg HSPRN PRN ORAL Insomnia 07/11/17 21:00 07/18/17 20:59 07/12/17 03:29 MIHAI PINA Jul 13, 2017 12:24
--- NOTE | 2017-07-15 12:31 | Discharge Summary ---
Discharge Summary Hospital Course Date of Admission Jul 11, 2017 at 18:55 Date of Discharge Jul 13, 2017 at 13:32 Admitting Diagnosis cauda equina syndrome JENNY Singh is a 37 year old male who was admitted on Jul 11, 2017 at 18:55 for Cauda Equina Syndrome Hospital Course dc summary #[id number] Discharge Medications New Medications: Acetaminophen With Codeine (T#3) (Tylenol #3 Tab*) Y Tab 1 TAB ORAL Q4H PRN for 10 Days, TAB Discharge Condition Upon Discharge: stable Discharge Disposition Patient was discharged to Home (01) Discharge Diagnoses: Vasiliy (Karine),Joellen CLANCY Jul 15, 2017 12:31
--- NOTE | 2017-07-16 03:30 | Discharge Summary 2 SIG ---
DATE OF ADMISSION: 07/11/2017 DATE OF DISCHARGE: 07/13/2017 REASON FOR ADMISSION: The patient is a 37-year-old male with history of right-sided cauda equina syndrome and spinal surgery in the past i.e. bilateral laminoforaminotomy, presented to emergency department complaining of 10/10 acute onset of back pain. The pain was exacerbated by movement and while walking. Denied trauma, falls, or injury. No fever. No chills. No history of malignancy. No recent spinal manipulation. The patient has had surgery for cauda equina on the right with bilateral laminoforaminotomy in 2012. However, he denied trauma or injury prior to incident. The patient denied currently urinary or bowel incontinence. He denied loss of sensation or loss of gross movement in bilateral lower extremities. He denies saddle anesthesia. No chest pain, shortness of breath, palpitation, or dizziness. No loss of consciousness. No blackout. No change in vision. MRI of the L-spine was inconclusive. MRI of T-spine was negative. Spine surgeon was contacted by emergency room doctor. The patient had mild leukocytosis on presentation and the patient was admitted for further management for rule out cauda equina syndrome and back pain. HOSPITAL COURSE: The patient was admitted to Med/Surg floor. The patient was started on the IV steroids. Spine surgery and pain specialist followed. Spine surgeon reordered MRI of L-spine, which revealed broad-based L5-S1 disk protrusion and large central disk extrusion nearly completely obliterating the spinal canal at and below the L5-S1 level. Lumbar x-ray revealed no acute bony trauma or evidence of ligamentous instability. Surgeon reevaluated the results of the repeated MRI. At this point, he had lengthy and maribel discussion with the patient. The patient had recurrent disk extrusion at L5-S1, however, he did not have findings of cauda equina syndrome. Neurologically, he was intact. He did have a nerve root traction sign and positive straight leg raise on the left side. He will be continued on steroid protocol. In the event, if pain will not be controlled, then surgical intervention would be in order. The patient verbalized understanding of further plan. Pain management was optimized by electrostatic painter. Pain was controlled. Bowel regimen was instituted. DVT prophylaxis was provided. The patient was working with physical and occupational therapists. The patient was stable for discharge. FINAL DIAGNOSES: 1. Intractable low back pain 2. Rule out cauda equina syndrome ( was ruled out) . 3. History of cauda equina syndrome with spinal surgery in the past. 4. Recurrent central disk herniation, L5-S1. 5. History of bilateral laminoforaminotomy. DISCHARGE MEDICATIONS: See medication reconciliation list. DISCHARGE INSTRUCTIONS: The patient will follow up with the spine surgeon as outpatient on Saturday for further management. Jonna Ryan M.D. Joellen Duenasgenesis N.PKin DR: HENNY JOB#: [id number] CC: JOE
== END 2017-07-13 13:32 | disposition home or self-care (01) | DRG 74 ==
LOC: EMR 16:39 → 4W 18:55 → EDBEDREQ 20:22
DX: G83.4 Cauda equina syndrome (principal); M51.06 Intervertebral disc disorders with myelopathy, lumbar region; M48.061 Spinal stenosis, lumbar region without neurogenic claudication
CPT/HCPCS: 36415; 72114; 72146; 72148; 72158; 80053; 84443; 85025; 99285; A9585